=== PATIENT | male | born 1945 | race Caucasian/White ===

== ENCOUNTER 2018-10-17 14:31 | Emergency (ER) | payer MEDICARE, OTHER ==
[~2018-10-17] VITALS: Ht 175.3 cm; Wt 88.5 kg
[~2018-10-17 14:31] MED LIST: LOSA25 PO; Nasal Spray30 ML
[2018-10-17] MEDS ORDERED: Omeprazole20 M1 (14:46)
[2018-10-17] MEDS ORDERED: SIMV40 PO (14:46)
[2018-10-17] MEDS ORDERED: LEVSOD50 PO (14:46)
[2018-10-17 15:23] LABS: BASOPHILS ABSOLUTE AUTO 0.04 K/mm3 (0.00-0.23); BASOPHILS PERCENT AUTO 0 % (0-2); EOSINOPHILS ABSOLUTE AUTO 0.04 K/mm3 (0.00-0.68); EOSINOPHILS PERCENT AUTO 0 % (0-6); Hematocrit 46.4 % (37.0-53.0); Hemoglobin 14.9 g/dL (13.5-17.5); IMMATURE GRAN ABSOLUTE AUTO 0.05 K/mm3 (0.00-0.10); IMMATURE GRAN PERCENT AUTO 0 % (0-1); LYMPHOCYTES ABSOLUTE AUTO 0.52 K/mm3 (0.84-5.20); LYMPHOCYTES PERCENT AUTO 4 % (21-46); MONOCYTES ABSOLUTE AUTO 0.82 K/mm3 (0.16-1.47); MONOCYTES PERCENT AUTO 7 % (4-13); Mean Corpuscular HGB 30.7 pg (26.0-34.0); Mean Corpuscular HGB Conc 32.1 g/dL (31.5-36.5); Mean Corpuscular Volume 96 fL (80-100); Mean Platelet Volume 9.8 fL (9.1-12.4); NEUTROPHILS ABSOLUTE AUTO 10.52 K/mm3 (1.96-9.15); NEUTROPHILS PERCENT AUTO 88 % (41-73); Platelet Count 200 K/mm3 (150-400); RDW Coefficient Variation 13.2 % (11.7-14.2); RDW Standard Deviation 46.5 fL (35.1-46.3); Red Blood Cell Count 4.86 M/mm3 (4.30-5.90); White Blood Cell Count 11.99 K/mm3 (4.00-11.30)
[2018-10-17 15:40] LABS: Troponin I <0.015 ng/mL (0.000-0.040)
[2018-10-17 15:41] LABS: Alanine Aminotransfer (ALT/SGP 30 U/L (12-78); Albumin, Blood 3.9 g/dL (3.4-5.0); Albumin/Globulin Ratio 0.9 (0.8-1.8); Alk Phos 70 U/L (50-136); Anion Gap 8 mmol/L (6-16); Aspartate Aminotrans (AST/SGOT 25 U/L (12-37); Bilirubin, Total 0.4 mg/dL (0.1-1.0); Blood Urea Nitrogen 23 mg/dL (8-24); Bun/Creatinine Ratio 25.4 (12.0-20.0); CO2, Blood 25 mmol/L (21-32); Calcium, Blood 9.1 mg/dL (8.5-10.1); Chloride, Blood 106 mmol/L (98-108); Globulin, Blood 4.3 g/dL (2.2-4.0); Glomerular Filtration Rate >60 (60-); Glucose, Blood 113 mg/dL (70-99); Potassium, Blood 4.2 mmol/L (3.5-5.5); Sodium, Blood 139 mmol/L (136-145); Total Protein, Blood 8.2 g/dL (6.4-8.2)
[2018-10-17] MEDS ORDERED: Zofran8 MG PO (15:51)
== END 2018-10-17 16:00 | disposition home or self-care (01) ==
LOC: ER 14:31
PROVIDERS: Emergency Medicine
DX: R11.2 Nausea with vomiting, unspecified (principal); I48.91 Unspecified atrial fibrillation; R78.5 Finding of other psychotropic drug in blood; I10 Essential (primary) hypertension; Z87.891 Personal history of nicotine dependence; Z85.038 Personal history of other malignant neoplasm of large intestine
CPT/HCPCS: 36415; 71046; 80053; 84484; 85025; 93005; 93010; 99284-25

== ENCOUNTER → 2018-10-21 | Outpatient (CLI) | payer MEDICARE, OTHER ==
[~2018-10-21] MED LIST changes: +LEVSOD50 PO; +Omeprazole20 M1; +SIMV40 PO; +Zofran8 MG PO
[2018-10-21 11:57] LABS: BASOPHILS ABSOLUTE AUTO 0.03 K/mm3 (0.00-0.23); BASOPHILS PERCENT AUTO 1 % (0-2); EOSINOPHILS ABSOLUTE AUTO 0.23 K/mm3 (0.00-0.68); EOSINOPHILS PERCENT AUTO 4 % (0-6); Hematocrit 42.3 % (37.0-53.0); Hemoglobin 14.4 g/dL (13.5-17.5); IMMATURE GRAN ABSOLUTE AUTO 0.01 K/mm3 (0.00-0.10); IMMATURE GRAN PERCENT AUTO 0 % (0-1); LYMPHOCYTES ABSOLUTE AUTO 0.75 K/mm3 (0.84-5.20); LYMPHOCYTES PERCENT AUTO 12 % (21-46); MONOCYTES ABSOLUTE AUTO 0.72 K/mm3 (0.16-1.47); MONOCYTES PERCENT AUTO 12 % (4-13); Mean Corpuscular HGB 30.7 pg (26.0-34.0); Mean Platelet Volume 10.2 fL (9.1-12.4); NEUTROPHILS ABSOLUTE AUTO 4.38 K/mm3 (1.96-9.15); NEUTROPHILS PERCENT AUTO 71 % (41-73); Platelet Count 186 K/mm3 (150-400); RDW Coefficient Variation 13.1 % (11.7-14.2); RDW Standard Deviation 42.8 fL (35.1-46.3); Red Blood Cell Count 4.69 M/mm3 (4.30-5.90); White Blood Cell Count 6.12 K/mm3 (4.00-11.30)
[2018-10-21 11:58] LABS: Mean Corpuscular Volume 90 fL (80-100)
== END | disposition home or self-care (01) ==
LOC: LAB SHORT 11:54 → LAB EV 11:54
PROVIDERS: Physician Assistant
DX: T78.40XA Allergy, unspecified, initial encounter (principal); R07.9 Chest pain, unspecified
CPT/HCPCS: 84484; 85025

== ENCOUNTER → 2018-10-23 | Outpatient (CLI) | payer MEDICARE, OTHER ==
[2018-10-23 12:36] LABS: BASOPHILS ABSOLUTE AUTO 0.03 K/mm3 (0.00-0.23); BASOPHILS PERCENT AUTO 0 % (0-2); EOSINOPHILS ABSOLUTE AUTO 0.06 K/mm3 (0.00-0.68); EOSINOPHILS PERCENT AUTO 1 % (0-6); Hematocrit 40.2 % (37.0-53.0); Hemoglobin 13.6 g/dL (13.5-17.5); IMMATURE GRAN ABSOLUTE AUTO 0.04 K/mm3 (0.00-0.10); IMMATURE GRAN PERCENT AUTO 0 % (0-1); LYMPHOCYTES ABSOLUTE AUTO 0.73 K/mm3 (0.84-5.20); LYMPHOCYTES PERCENT AUTO 6 % (21-46); MONOCYTES ABSOLUTE AUTO 0.91 K/mm3 (0.16-1.47); MONOCYTES PERCENT AUTO 7 % (4-13); Mean Corpuscular HGB 30.9 pg (26.0-34.0); Mean Corpuscular HGB Conc 33.8 g/dL (31.5-36.5); Mean Corpuscular Volume 91 fL (80-100); Mean Platelet Volume 10.4 fL (9.1-12.4); NEUTROPHILS ABSOLUTE AUTO 11.28 K/mm3 (1.96-9.15); NEUTROPHILS PERCENT AUTO 86 % (41-73); Platelet Count 218 K/mm3 (150-400); RDW Coefficient Variation 13.2 % (11.7-14.2); RDW Standard Deviation 44.6 fL (35.1-46.3); White Blood Cell Count 13.05 K/mm3 (4.00-11.30)
[2018-10-23 12:49] LABS: Alanine Aminotransfer (ALT/SGP 59 U/L (12-78); Albumin, Blood 3.4 g/dL (3.4-5.0); Albumin/Globulin Ratio 0.9 (0.8-1.8); Alk Phos 64 U/L (40-126); Anion Gap 9 mmol/L (6-16); Aspartate Aminotrans (AST/SGOT 40 U/L (12-37); Bilirubin, Total 0.5 mg/dL (0.1-1.0); Blood Urea Nitrogen 21 mg/dL (8-24); Bun/Creatinine Ratio 21.9 (12.0-20.0); CO2, Blood 29 mmol/L (21-32); Chloride, Blood 106 mmol/L (98-108); Creatinine, Blood 0.96 mg/dL (0.60-1.20); Globulin, Blood 3.7 g/dL (2.2-4.0); Glomerular Filtration Rate >60 (60-); Glucose, Blood 116 mg/dL (70-99); Potassium, Blood 3.2 mmol/L (3.5-5.5); Sodium, Blood 144 mmol/L (136-145); Total Protein, Blood 7.1 g/dL (6.4-8.2)
[2018-10-23 14:10] LABS: International Normalized Ratio 1.01; Prothrombin Time Results 10.4 Sec (9.7-11.5)
[2018-10-23 14:27] LABS: Bacteria Not Seen /hpf; Red Blood Cells, Urine Not Seen /hpf (0-2); Squamous Epithelial Cells Not Seen /hpf (Few); White Blood Cells, Urine Not Seen /hpf (0-5)
[2018-10-23 14:28] LABS: Calcium Oxalate Crystals Many /hpf
== END | disposition home or self-care (01) ==
LOC: LAB EV 12:32 → LAB SHORT 12:32
PROVIDERS: General Practice
DX: K92.0 Hematemesis (principal); J18.9 Pneumonia, unspecified organism; R31.9 Hematuria, unspecified
CPT/HCPCS: 80053; 81015; 85025; 85610; 85730

== ENCOUNTER 2019-12-03 09:13 | Day surgery (SDC) | payer MEDICARE, OTHER ==
[~2019-12-03] VITALS: Ht 172.7 cm; Wt 87.3 kg
[~2019-12-03 09:13] MED LIST changes: +ASCO500 PO; +MULTIPLE VITAM1 EACH PO; +PROAIR RESPICL90 MCG INH
--- NOTE | 2019-12-03 10:38 | NUR ---
12/03/19 Taisha Perez PT. VERBALIZES TO [facility] THAT WHEN LISTENING TO HIS LUNGS, CRACKLES WILL BE HEARD. PT. WITH CRACKLES. PT. HAS PULMONARY FIBROSIS. PT. VERBALIZES NOT USING INHALERS OR ANY O2.
== END 2019-12-03 11:45 | disposition home or self-care (01) ==
LOC: ORSCSDS 09:13
PROVIDERS: Surgery
PROC: 0DJD8ZZ Inspection of Lower Intestinal Tract, Via Natural or Artificial Opening Endoscopic (ICD-10-PCS; principal; 2019-12-03 10:30)
DX: Z12.11 Encounter for screening for malignant neoplasm of colon (principal); K57.30 Diverticulosis of large intestine without perforation or abscess without bleeding; Z85.038 Personal history of other malignant neoplasm of large intestine; G47.33 Obstructive sleep apnea (adult) (pediatric); I10 Essential (primary) hypertension; E78.5 Hyperlipidemia, unspecified; E03.9 Hypothyroidism, unspecified; I48.91 Unspecified atrial fibrillation; Z79.899 Other long term (current) drug therapy; Z87.891 Personal history of nicotine dependence
CPT/HCPCS: J2704; J7120

== ENCOUNTER → 2021-03-22 | Outpatient (CLI) | payer MEDICARE, OTHER ==
[2021-03-22 08:32] LABS: BASOPHILS ABSOLUTE AUTO 0.06 K/mm3 (0.00-0.23); BASOPHILS PERCENT AUTO 1 % (0-2); EOSINOPHILS ABSOLUTE AUTO 0.21 K/mm3 (0.00-0.68); EOSINOPHILS PERCENT AUTO 3 % (0-6); Hematocrit 44.3 % (37.0-53.0); Hemoglobin 14.8 g/dL (13.5-17.5); IMMATURE GRAN ABSOLUTE AUTO 0.03 K/mm3 (0.00-0.10); IMMATURE GRAN PERCENT AUTO 0 % (0-1); LYMPHOCYTES ABSOLUTE AUTO 1.05 K/mm3 (0.84-5.20); LYMPHOCYTES PERCENT AUTO 15 % (21-46); MONOCYTES ABSOLUTE AUTO 0.82 K/mm3 (0.16-1.47); MONOCYTES PERCENT AUTO 12 % (4-13); Mean Corpuscular HGB 30.7 pg (26.0-34.0); Mean Corpuscular HGB Conc 33.4 g/dL (31.5-36.5); Mean Corpuscular Volume 92 fL (80-100); Mean Platelet Volume 10.8 fL (9.1-12.4); NEUTROPHILS ABSOLUTE AUTO 4.96 K/mm3 (1.96-9.15); NEUTROPHILS PERCENT AUTO 70 % (41-73); Platelet Count 183 K/mm3 (150-400); RDW Coefficient Variation 13.4 % (11.7-14.2); RDW Standard Deviation 45.5 fL (35.1-46.3); Red Blood Cell Count 4.82 M/mm3 (4.30-5.90); White Blood Cell Count 7.13 K/mm3 (4.00-11.30)
[2021-03-22 08:40] LABS: Alanine Aminotransfer (ALT/SGP 25 U/L (12-78); Albumin, Blood 3.5 g/dL (3.4-5.0); Albumin/Globulin Ratio 0.9 (0.8-1.8); Alk Phos 60 U/L (40-126); Anion Gap 8 mmol/L (6-16); Aspartate Aminotrans (AST/SGOT 18 U/L (12-37); Bilirubin, Total 0.3 mg/dL (0.1-1.0); Blood Urea Nitrogen 22 mg/dL (8-24); Bun/Creatinine Ratio 21.4 (12.0-20.0); CO2, Blood 27 mmol/L (21-32); Calcium, Blood 9.4 mg/dL (8.5-10.1); Chloride, Blood 105 mmol/L (98-108); Creatinine, Blood 1.03 mg/dL (0.60-1.20); Globulin, Blood 3.8 g/dL (2.2-4.0); Glomerular Filtration Rate >60 (60-); Glucose, Blood 116 mg/dL (70-99); Potassium, Blood 4.4 mmol/L (3.5-5.5); Sodium, Blood 140 mmol/L (136-145); Thyroid Stimulating Hormone 5.186 uIU/mL (0.360-4.800); Total Protein, Blood 7.3 g/dL (6.4-8.2); Troponin I <0.017 ng/mL (0.000-0.040)
== END ==
LOC: LAB SHORT 08:29 → PLD 08:29
PROVIDERS: Physician Assistant
DX: I48.91 Unspecified atrial fibrillation (principal); R53.83 Other fatigue
CPT/HCPCS: 80053; 84439; 84443; 84481; 84484; 85025

== ENCOUNTER 2022-09-29 12:16 | Inpatient (IN) | payer OTHER, MEDICARE ==
[~2022-09-29] VITALS: Ht 175.3 cm; Wt 65.0 kg
[~2022-09-29 12:16] MED LIST changes: +LEVSOD25 PO; -LEVSOD50 PO
[2022-09-29 12:50] LABS: BASOPHILS ABSOLUTE AUTO 0.05 K/mm3 (0.00-0.23); BASOPHILS PERCENT AUTO 1 % (0-2); EOSINOPHILS ABSOLUTE AUTO 0.07 K/mm3 (0.00-0.68); EOSINOPHILS PERCENT AUTO 1 % (0-6); Hematocrit 42.2 % (37.0-53.0); Hemoglobin 13.8 g/dL (13.5-17.5); IMMATURE GRAN ABSOLUTE AUTO 0.03 K/mm3 (0.00-0.10); IMMATURE GRAN PERCENT AUTO 0 % (0-1); LYMPHOCYTES ABSOLUTE AUTO 0.43 K/mm3 (0.84-5.20); LYMPHOCYTES PERCENT AUTO 5 % (21-46); MONOCYTES ABSOLUTE AUTO 0.75 K/mm3 (0.16-1.47); MONOCYTES PERCENT AUTO 8 % (4-13); Mean Corpuscular HGB Conc 32.7 g/dL (31.5-36.5); Mean Corpuscular Volume 95 fL (80-100); Mean Platelet Volume 11.8 fL (9.1-12.4); NEUTROPHILS ABSOLUTE AUTO 7.84 K/mm3 (1.96-9.15); NEUTROPHILS PERCENT AUTO 86 % (41-73); Platelet Count 173 K/mm3 (150-400); Red Blood Cell Count 4.45 M/mm3 (4.30-5.90); White Blood Cell Count 9.17 K/mm3 (4.00-11.30)
[2022-09-29 13:10] LABS: Albumin, Blood 3.4 g/dL (3.4-5.0); Albumin/Globulin Ratio 0.9 (0.8-1.8); Bilirubin, Total 0.5 mg/dL (0.1-1.0); Bun/Creatinine Ratio 29.7 (12.0-20.0); Calcium, Blood 9.7 mg/dL (8.5-10.1); Creatinine, Blood 0.78 mg/dL (0.60-1.20); Globulin, Blood 3.7 g/dL (2.2-4.0); Potassium, Blood 5.1 mmol/L (3.5-5.5); Total Protein, Blood 7.1 g/dL (6.4-8.2)
[2022-09-29 13:18] LABS: Bicarbonate Venous 35.2 mmol/L (24.0-30.0); PCO2 Venous 59.1 mmHg (38-42); pH Blood Venous 7.42 (7.34-7.37)
[2022-09-29 13:54] LABS: Influenza A, PCR NEGATIVE (NEGATIVE); Influenza B, PCR NEGATIVE (NEGATIVE); Resp Syncytial Virus, PCR NEGATIVE (NEGATIVE); SARS-Cov-2 (COVID-19) PCR, MMC NEGATIVE (NEGATIVE)
[2022-09-29 14:04] LABS: Source, Urine Straight Cath
[2022-09-29 14:09] LABS: Appearance, Urine Clear (Clear); Bilirubin, Urine Neg (Neg); Blood, Urine Neg (Neg); Color, Urine Yellow (P-Yellow); Glucose Qualitative, Urine Neg (Neg); Ketones, Urine Neg (Neg); Leukocyte Esterase, Urine Neg (Neg); Nitrite, Urine Neg (Neg); Protein, Urine Neg (Neg); Urobilinogen, Urine NORM (Normal)
[2022-09-29] MEDS ORDERED: ESBRIET267 MG PO (21:55)
--- NOTE | 2022-09-30 05:05 | NUR ---
Shift Summary Pt was placed on continuos biox, given 6L to keep O2>90. Quickly desats into the 80's with any exertion including rolling but recovers shortly after resting. Has difficulty saying more than a few words at a time without running short of breath. Wore his home CPAP at night and slept well t/o the night. Rcvd IV lasix one time at the start of shift per EMAR, produced light yellow urine for the next few hours. Pt uses urinal and calls appropriatly. No acute events, pleasant and cooperative with care.
[2022-09-30 06:10] LABS: BASOPHILS ABSOLUTE AUTO 0.06 K/mm3 (0.00-0.23); BASOPHILS PERCENT AUTO 1 % (0-2); EOSINOPHILS ABSOLUTE AUTO 0.13 K/mm3 (0.00-0.68); EOSINOPHILS PERCENT AUTO 1 % (0-6); Hematocrit 42.7 % (37.0-53.0); Hemoglobin 14.1 g/dL (13.5-17.5); IMMATURE GRAN ABSOLUTE AUTO 0.02 K/mm3 (0.00-0.10); IMMATURE GRAN PERCENT AUTO 0 % (0-1); LYMPHOCYTES ABSOLUTE AUTO 0.77 K/mm3 (0.84-5.20); LYMPHOCYTES PERCENT AUTO 9 % (21-46); MONOCYTES ABSOLUTE AUTO 1.02 K/mm3 (0.16-1.47); MONOCYTES PERCENT AUTO 11 % (4-13); Mean Corpuscular HGB 31.2 pg (26.0-34.0); Mean Corpuscular Volume 95 fL (80-100); Mean Platelet Volume 11.5 fL (9.1-12.4); NEUTROPHILS ABSOLUTE AUTO 6.98 K/mm3 (1.96-9.15); NEUTROPHILS PERCENT AUTO 78 % (41-73); Platelet Count 186 K/mm3 (150-400); RDW Coefficient Variation 13.2 % (11.7-14.2); RDW Standard Deviation 45.9 fL (35.1-46.3); Red Blood Cell Count 4.52 M/mm3 (4.30-5.90); White Blood Cell Count 8.98 K/mm3 (4.00-11.30)
[2022-09-30 07:27] LABS: Magnesium, Blood 2.3 mg/dL (1.6-2.4)
[2022-09-30 07:28] LABS: Albumin, Blood 3.3 g/dL (3.4-5.0); Anion Gap 4 mmol/L (6-16); Blood Urea Nitrogen 24 mg/dL (8-24); Bun/Creatinine Ratio 26.2 (12.0-20.0); CO2, Blood 36 mmol/L (21-32); Calcium, Blood 9.7 mg/dL (8.5-10.1); Chloride, Blood 98 mmol/L (98-108); Creatinine, Blood 0.92 mg/dL (0.60-1.20); Glomerular Filtration Rate 85 (60-); Glucose, Blood 114 mg/dL (70-99); Phosphorus, Blood 5.1 mg/dL (2.5-4.9); Potassium, Blood 4.4 mmol/L (3.5-5.5); Sodium, Blood 138 mmol/L (136-145)
--- NOTE | 2022-09-30 08:00 | NUR ---
pt laying in bed awake, a/ox3, pleasant and cooperative with care, follows commands well, denies pain, states he's just sob, lungs are coures t/o, resp even some laboring at rest, no cough noted, hrr, no edema noted, cap refill <3sec, vs stable, afebrile, iv site to lac is clear and patent, btx4, abd flat soft nontender, voids without diff, skin c/w/d, maew, jacob, call light in reach.
--- NOTE | 2022-09-30 18:26 | NUR ---
pt stood at the side of the bed today and took a few steps, o2 dropped to 88% on 5 liters, no acute changes this shift. call light in reach.
--- NOTE | 2022-10-01 04:26 | NUR ---
SHIFT SUMMARY A/OX4, 1P ASSIST TO BSC. CURRENTLY ON 6L VIA NC WITH SATS GREATER THAN 92, DYSPNEA NOTED ON EXERTION. VSS, NO ACUTE CHANGES AT THIS TIME. BED IN LOWEST POSITION WITH CALL LIGHT IN REACH. WILL CONTINUE TO MONITOR AND REPORT TO ONCOMING RN.
[2022-10-01 06:05] LABS: BASOPHILS ABSOLUTE AUTO 0.06 K/mm3 (0.00-0.23); BASOPHILS PERCENT AUTO 1 % (0-2); EOSINOPHILS PERCENT AUTO 4 % (0-6); Hematocrit 40.8 % (37.0-53.0); Hemoglobin 13.1 g/dL (13.5-17.5); IMMATURE GRAN ABSOLUTE AUTO 0.02 K/mm3 (0.00-0.10); IMMATURE GRAN PERCENT AUTO 0 % (0-1); LYMPHOCYTES ABSOLUTE AUTO 1.09 K/mm3 (0.84-5.20); LYMPHOCYTES PERCENT AUTO 15 % (21-46); MONOCYTES ABSOLUTE AUTO 0.94 K/mm3 (0.16-1.47); MONOCYTES PERCENT AUTO 13 % (4-13); Mean Corpuscular HGB 31.2 pg (26.0-34.0); Mean Corpuscular HGB Conc 32.1 g/dL (31.5-36.5); Mean Corpuscular Volume 97 fL (80-100); Mean Platelet Volume 10.9 fL (9.1-12.4); NEUTROPHILS ABSOLUTE AUTO 4.99 K/mm3 (1.96-9.15); NEUTROPHILS PERCENT AUTO 67 % (41-73); Platelet Count 158 K/mm3 (150-400); RDW Coefficient Variation 13.2 % (11.7-14.2); RDW Standard Deviation 47.3 fL (35.1-46.3)
[2022-10-01 06:21] LABS: Albumin, Blood 3.1 g/dL (3.4-5.0); Anion Gap 4 mmol/L (6-16); Blood Urea Nitrogen 22 mg/dL (8-24); Bun/Creatinine Ratio 24.1 (12.0-20.0); CO2, Blood 38 mmol/L (21-32); Calcium, Blood 9.2 mg/dL (8.5-10.1); Chloride, Blood 98 mmol/L (98-108); Creatinine, Blood 0.91 mg/dL (0.60-1.20); Glomerular Filtration Rate 86 (60-); Glucose, Blood 108 mg/dL (70-99); Magnesium, Blood 2.3 mg/dL (1.6-2.4); Phosphorus, Blood 3.9 mg/dL (2.5-4.9); Potassium, Blood 4.2 mmol/L (3.5-5.5); Sodium, Blood 140 mmol/L (136-145)
--- NOTE | 2022-10-01 08:00 | NUR ---
pt laying in bed awake a/ox3, pleasant and cooperative with care, follows commands well, denies pain and states he slept well last night is concerned about his temp fluctuating a bit, he reports he has checked in numerous times a day when covid started, and would like to be tested, in room so he was able to communicate this to him, lungs are course on 5 liters 02 via n/c, resp even and unlabored, no cough noted at this time, hrr, no edema noted, ppp+1, cap refill <3sec, vs stable, afebrile, iv site to lac is clear and patent, btx4, abd flat soft nontender, voids without diff, skin c/w/d, nadia, jacob, call light in reach.
[2022-10-01 11:17] LABS: SARS-Cov-2 (COVID-19) PCR, MMC NEGATIVE (NEGATIVE)
--- NOTE | 2022-10-01 17:42 | NUR ---
SUMMARY PT SITTING UP IN BED WATCHING TV, PT HAS BEEN PLEASANT AND COOPERATIVE WITH CARE, ANXIOUS AT TIMES REGARDING HIS OXYGEN, HAS HAD VISITORS IN TODAY, NO COMPLAINTS, VSS, WILL CONT TO MONITOR
--- NOTE | 2022-10-02 07:15 | NUR ---
SHIFT SUMMARY PATIENT ALERT AND ORIENTED. HAD NO COMPLAINTS OF PAIN OR SHORTNESS OF BREATH. NO ACUTE ISSUES NOTED OVERNIGHT. CALL LIGHT WITHIN REACH. REPORT GIVEN TO ONCOMING RN.
[2022-10-02 07:56] LABS: BASOPHILS ABSOLUTE AUTO 0.06 K/mm3 (0.00-0.23); BASOPHILS PERCENT AUTO 1 % (0-2); EOSINOPHILS ABSOLUTE AUTO 0.32 K/mm3 (0.00-0.68); EOSINOPHILS PERCENT AUTO 4 % (0-6); Hemoglobin 13.4 g/dL (13.5-17.5); IMMATURE GRAN ABSOLUTE AUTO 0.02 K/mm3 (0.00-0.10); IMMATURE GRAN PERCENT AUTO 0 % (0-1); LYMPHOCYTES ABSOLUTE AUTO 0.66 K/mm3 (0.84-5.20); LYMPHOCYTES PERCENT AUTO 8 % (21-46); MONOCYTES PERCENT AUTO 9 % (4-13); Mean Corpuscular HGB 30.7 pg (26.0-34.0); Mean Corpuscular HGB Conc 31.9 g/dL (31.5-36.5); Mean Corpuscular Volume 96 fL (80-100); Mean Platelet Volume 11.1 fL (9.1-12.4); NEUTROPHILS ABSOLUTE AUTO 6.67 K/mm3 (1.96-9.15); NEUTROPHILS PERCENT AUTO 78 % (41-73); Platelet Count 170 K/mm3 (150-400); RDW Coefficient Variation 13.2 % (11.7-14.2); Red Blood Cell Count 4.37 M/mm3 (4.30-5.90); White Blood Cell Count 8.53 K/mm3 (4.00-11.30)
[2022-10-02 08:29] LABS: Bun/Creatinine Ratio 21.1 (12.0-20.0); Calcium, Blood 9.3 mg/dL (8.5-10.1); Creatinine, Blood 0.81 mg/dL (0.60-1.20); Potassium, Blood 4.2 mmol/L (3.5-5.5)
--- NOTE | 2022-10-02 13:45 | NUR ---
Spoke with Dr Fraire prior to Pt visit and discussed case. Pt resting in bed eating lunch. Pt on 6 1/2 L O2 via NC. Pt is A&O and O2 desats the more he speaks. Pt desaturates down to 90% then takes a break from speaking. Pt reports living at home by himself. Confirmed Pt's understanding of disease process. Gentle education on disease process including trajectory. Engaged in therapeutic conversation regarding goals of care. Discussed hospice as an option and educated on hospice philosophy. Offered therapeutic listening as Pt states knowing he does not have much time left. Pt reports knowing that he can not go home and take care of himself. He reports being a and would like to know if the [place] will pay for placement and a nursing facility with hospice services. Continued therapeutic listening. Spoke with ADRIEN Pierre and relayed Pt's wishes. Palliative Care will remain available.
--- NOTE | 2022-10-02 16:17 | NUR ---
SHIFT SUMMARY PATIENT IS ALERT AND ORIENTED. PATIENT HAS HAD NO ACUTE EVENTS THIS SHIFT. VITAL SIGNS REVIEWED. PATIENT HAS NOT COMPLAINED OF PAIN, NAUSEA, SOB OR VOMITTING. BED IN LOCKED AND LOWEST POSITION. CALL LIGHT IN PLACE. WILL MONITOR UNTIL SHIFT CHANGE.
--- NOTE | 2022-10-03 05:36 | NUR ---
EXERCISE MANAGER SUMMARY: A&Ox4. PLEASANT AND COOPERATIVE WITH CARE. CALLS APPROPRIATELY AND COMMUNICATES NEEDS EFFECTIVELY. SLEPT MAJORITY OF THE NIGHT. NO CHANGE IN ELIMINATION PATTERN; DID HAVE EXTRA LARGE BM LAST NIGHT. NO C/O PAIN OR DISCOMFORT. VSS. PLANS TO DC HOME ON HOSPICE. WILL REPORT TO ONCOMING RN.
--- NOTE | 2022-10-03 16:20 | NUR ---
Spoke with RN Dayana Pierre and discussed case. [facility] has accepted Pt to their hospice wing. Pt resting in bed upon arrival. Provided supportive visit as Pt reports being agreement with plan for hospice at [place]. Continued supportive visit. Pt's O2 saturations drop down to 87% with short conversation. Ended visit to allow Pt to rest. Palliative Care will remain available
[2022-10-03 16:30] LABS: SARS-Cov-2 (COVID-19) PCR, MMC NEGATIVE (NEGATIVE)
--- NOTE | 2022-10-03 16:39 | NUR ---
SHIFT SUMMARY PATIENT IS ALERT AND ORIENTED. PATIENT HAS HAD NO ACUTE EVENTS THIS SHIFT. VITAL SIGNS REVIEWED. PATIENT HAS BEEN HYPOTENSIVE, DR AWARE, NO NEW ORDERS. PATIENT HAS NOT COMPLAINED OF PAIN, NAUSEA, SOB OR VOMITTING THIS SHIFT. PATIENT HAS HAD A NEGATIVE COVID TEST DONE TODAY. PATIENT IS PLANNING ON DISCHARGING TO [facility] TOMORROW. BED IN LOCKED AND LOWEST POSITION. CALL LIGHT IN PLACE. WILL MONITOR UNTIL SHIFT CHANGE.
--- NOTE | 2022-10-04 05:09 | NUR ---
GEM STONE CUTTER SUMMARY NO ACUTE EVENTS. PT A/OX4. PLEASANT AND COOPERATIVE; ANXIOUS AT TIMES RELATED T/ILLNESS AND NEED F/OXYGEN. PT BUMPED UP TO 8L OF O2 DURING DAY SHIFT T/MAINTAIN SATS--REQUIRED THROUGH EVENING. PT ON 7L BLEED IN W/CPAP AND MAINTAINED O2 ABOVE 90%. PT C/O RIB PAIN--PT BELIEVES FROM COUGHING; NEW ORDER FOR TYLENOL Q6 PRN. PT OXYGEN WILL EASILY DESAT WHEN TALING OR WITH ACTIVITY. ON CONT PULSE OX. CALL LIGHT IN REACH.
[2022-10-04] MEDS ORDERED: ALBU2.5V5 INH (10:15)
[2022-10-04] MEDS ORDERED: AMOCLA875 PO (10:19)
[2022-10-04] MEDS ORDERED: GUAI600T33 PO (10:21)
[2022-10-04] MEDS ORDERED: OMEP20ER PO ×2 (10:21→10:23)
[2022-10-04] MEDS ORDERED: VISBIOME 112.51 EACH PO (10:23)
--- NOTE | 2022-10-04 11:30 | NUR ---
DISCHARGE PT A&OX4 @ TIME OF DC. PT IV REMOVED PRIOR TO DC. REPORT CALLED INTO MICHELLE @ [facility]. [facility]LNC. [facility] [place] [facility]. TOLERATING PO INTAKE, SBA.
== END 2022-10-04 11:24 | disposition hospice, home (50) | DRG 193 ==
LOC: ER 12:16 → MEDS 15:43
PROVIDERS: Internal Medicine; Student in an Organized Health Care Education/Training Program; ADMIT Family Medicine
PROC: 5A09357 Assistance with Respiratory Ventilation, Less than 24 Consecutive Hours, Continuous Positive Airway Pressure (ICD-10-PCS; principal; 2022-09-30)
DX: J18.9 Pneumonia, unspecified organism (principal); J96.21 Acute and chronic respiratory failure with hypoxia; J84.112 Idiopathic pulmonary fibrosis; K21.9 Gastro-esophageal reflux disease without esophagitis; Z66 Do not resuscitate; Z51.5 Encounter for palliative care; Z20.822 Contact with and (suspected) exposure to COVID-19; Z98.890 Other specified postprocedural states; Z85.038 Personal history of other malignant neoplasm of large intestine; Z90.49 Acquired absence of other specified parts of digestive tract; Z87.891 Personal history of nicotine dependence; Z79.899 Other long term (current) drug therapy
CPT/HCPCS: 0241U; 36415; 71046; 80048; 80053; 80069; 81003; 82803; 83605; 83735; 84145; 85025; 87040; 93005; 93010; 94640; 94660; 94664; 94762; 96365; 99285-25; A9270; J0456; J0696; J1650; J1940; J7030; J7050; U0004